=== PATIENT | female | born 2000 | race Caucasian/White ===

== ENCOUNTER 2020-11-04 03:34 | Emergency (ER) | payer MEDICAID ==
[~2020-11-04] VITALS: Ht 157.5 cm; Wt 73.0 kg
[2020-11-04] MEDS ORDERED: HALOPERIDOL LACTATE 5MG/ML VIAL IM STA (03:52)
[2020-11-04] MEDS ORDERED: LORAZEPAM 2MG/ML CPJ IM STA (03:52)
[2020-11-04 04:19] LABS: BASOPHILS % 0.3 % (0.0-2.0); EOSINOPHILS % 0.2 % (0.0-5.0); HEMATOCRIT. 38.8 % (36.0-48.0); HEMOGLOBIN. 12.6 g/dL (12.0-16.0); MEAN CORPUSCULAR VOLUME 85.9 fL (81.0-99.0); MEAN PLATELET VOLUME 7.9 fl (7.4-10.4); NEUTROPHILS % 66.5 % (40.0-76.0); PLATELET 380 x1000/uL (130-400); RED BLOOD CELL COUNT 4.52 mill/uL (4.2-5.4)
[2020-11-04 04:30] LABS: CHLORIDE 107 mEq/L (98-107)
[2020-11-04 04:35] LABS: ETHANOL BLOOD < 10 mg/dL
[2020-11-04 04:57] LABS: *BARBITURATES SCREEN URINE NEGATIVE (NEGATIVE); *BENZODIAZEPINES SCREEN URINE NEGATIVE (NEGATIVE); *COCAINE SCREEN URINE NEGATIVE (NEGATIVE); METHADONE URINE SCREEN NEGATIVE (NEGATIVE); OPIATES URINE SCREEN NEGATIVE (NEGATIVE)
[2020-11-04 04:58] LABS: CANNABINOID URINE SCREEN NEGATIVE (NEGATIVE); PHENCYCLIDINE URINE SCREEN NEGATIVE (NEGATIVE)
[2020-11-04 05:02] LABS: *AMPHETAMINES SCREEN URINE PRESUMTIVE POSITIVE (NEGATIVE)
[2020-11-04] MEDS ORDERED: BUSPIRONE HCL 10MG TABLET PO STA (10:10)
[2020-11-04] MEDS ORDERED: ARIPIPRAZOLE 5MG TABLET PO STA (10:10)
[2020-11-04] MEDS ORDERED: SERTRALINE HCL 50MG TABLET PO STA (10:10)
[2020-11-04] MEDS ORDERED: BUSPIRONE HCL 5MG TABLET PO NR (10:30)
[2020-11-04] MEDS ORDERED: ARIPIPRAZOLE 5MG TABLET PO ONE (17:00)
[2020-11-04] MEDS ORDERED: BUSPIRONE HCL 5MG TABLET PO ONE (17:00)
[2020-11-04] MEDS ORDERED: TRAZODONE HCL 50MG TABLET PO SCH (21:00)
[2020-11-04] MEDS ORDERED: LORAZEPAM 1MG TABLET PO ONE (22:30)
[2020-11-05 11:00] VITALS: BP 105/62
== END 2020-11-05 11:42 | disposition home or self-care (01) ==
LOC: ER 03:34
DX: F15.129 Other stimulant abuse with intoxication, unspecified (principal); R00.0 Tachycardia, unspecified; R45.851 Suicidal ideations; R45.850 Homicidal ideations; F20.9 Schizophrenia, unspecified; F31.9 Bipolar disorder, unspecified; Z20.822 Contact with and (suspected) exposure to COVID-19
CPT/HCPCS: 36415; 80053; 80305; 80320; 81025; 85025; 87426; 93005; 96372; 99285; J1630; J2060; Z7610; G0480